=== PATIENT | female | born 1995 | race Caucasian/White ===

== ENCOUNTER 2019-07-06 07:15 | Emergency (ER) | payer SELFPAY ==
[~2019-07-06] VITALS: Ht 165.1 cm; Wt 71.2 kg
[2019-07-06 07:30] VITALS: BP 111/81
[2019-07-06] MEDS ORDERED: ONDANSETRON PF 4 MG/2 ML VIAL. IV ONE (07:45)
[2019-07-06] MEDS ORDERED: FAMOTIDINE 20 MG/2 ML VIAL IVP ONE (07:45)
[2019-07-06] MEDS ORDERED: IV NORMAL SALINE 1,000ML 1,000 ML IV SCH (08:00)
[2019-07-06] MEDS ORDERED: ONDANSETRON PF 4 MG/2 ML VIAL. ONE (08:02)
[2019-07-06] MEDS ORDERED: FAMOTIDINE 20 MG/2 ML VIAL ONE (08:03)
[2019-07-06 08:07] LABS: BASO % 1 % (0-3); EOS # 0.2 x10^3/uL (0.0-0.7); EOS % 3 % (0-3); HEMATOCRIT 40.5 % (36.0-47.0); HEMOGLOBIN 13.4 g/dL (12.0-15.5); LYMPH # 2.3 x10^3/uL (1.0-4.8); LYMPH % 28 % (24-48); MEAN CORPUSCULAR HEMOGLOBIN 29 pg (25-35); MEAN CORPUSCULAR HGB CONC 33 g/dL (31-37); MEAN CORPUSCULAR VOLUME 86 fL (79-100); MONO # 0.5 x10^3/uL (0.0-1.1); MONO % 6 % (0-9); NEUT % 62 % (31-73); PLATELET COUNT 282 x10^3/uL (140-400); RED CELL DISTRIBUTION WIDTH 13.5 % (11.5-14.5)
[2019-07-06 08:14] LABS: PREG TEST PT QUAL NEGATIVE (NEG)
[2019-07-06 08:16] LABS: BACTERIA,URINE MANY /HPF (0-FEW); BILIRUBIN,URINE NEG (NEG); CLARITY,URINE HAZY; COLOR,URINE YELLOW; GLUCOSE,URINE NEG (NEG); NITRITE,URINE NEG (NEG); SQUAMOUS EPITHELIAL CELL,UR MANY /LPF; UROBILINOGEN,URINE 0.2 mg/dL (0.2 mg/dL); WBC,URINE >40 /HPF (0-4)
[2019-07-06 08:17] LABS: ALBUMIN 3.9 g/dL (3.4-5.0); ALBUMIN/GLOBULIN RATIO 1.1 (1.0-1.7); CALCIUM 9.1 mg/dL (8.5-10.1); CREATININE 1.1 mg/dL (0.6-1.0); POTASSIUM 3.9 mmol/L (3.5-5.1); TOTAL BILIRUBIN 0.7 mg/dL (0.2-1.0); TOTAL PROTEIN 7.6 g/dL (6.4-8.2)
--- NOTE | 2019-07-06 08:31 | PHYS DOC ---
Past History Past Medical History: Asthma, Ovarian Cyst Past Surgical History: No Surgical History Alcohol Use: None Drug Use: None Adult General Chief Complaint Chief Complaint: ABDOMINAL PAIN HPI HPI Patient is a 24 year old female who presents with complaint of left-sided abdominal pain. Patient states her symptoms have been present over the past week. States that they have been waxing and waning during that time. Notes that she has been having nausea and occasional vomiting associated with symptoms. Denies any fever or loose stools. States that she has been moving her bowels. Notes that the pain is sharp and localized to her abdomen. Denies radiation of pain into the pelvis or into the flank. Has not taken any medications for symptoms. Denies any significant past medical history. No history of similar symptoms. Review of Systems Review of Systems Constitutional: Denies fever or chills [] Eyes: Denies change in visual acuity, redness, or eye pain [] HENT: Denies nasal congestion or sore throat [] Respiratory: Denies cough or shortness of breath [] Cardiovascular: Denies chest pain or edema[] GI: Abdominal pain, nausea, vomiting, denies bloody stools or diarrhea [] : Denies dysuria or hematuria [] Musculoskeletal: Denies back pain or joint pain [] Integument: Denies rash or skin lesions [] Neurologic: Denies headache, focal weakness or sensory changes [] All other systems were reviewed and found to be within normal limits, except as documented in this note. Current Medications Current Medications Current Medications Medications (Trade) Dose Ordered Sig/Lillie Start Time Stop Time Status Last Admin Dose Admin Famotidine (Pepcid Vial) 20 mg STK-MED ONCE 07/06/19 08:03 07/06/19 08:03 DC Fentanyl Citrate (Fentanyl 2ml Vial) 50 mcg PRN Q15MIN PRN 07/06/19 07:45 07/07/19 07:44 Ondansetron HCl (Zofran) 4 mg STK-MED ONCE 07/06/19 08:02 07/06/19 08:02 DC Sodium Chloride 1,000 ml @ 1,000 mls/hr Q1H 07/06/19 08:00 07/06/19 08:59 07/06/19 08:28 1,000 MLS/HR Allergies Allergies Allergies Coded Allergies Type Severity Reaction Last Updated Verified Penicillins Allergy Unknown 07/06/19 Yes amoxicillin Allergy Unknown 07/06/19 Yes naproxen Allergy Unknown 07/06/19 Yes sulfamethoxazole Allergy Unknown 07/06/19 Yes trimethoprim Allergy Unknown 07/06/19 Yes Physical Exam Physical Exam Constitutional: Alert, afebrile, appears in mild discomfort. [] HENT: Normocephalic, atraumatic, bilateral external ears normal, oropharynx moist, no oral exudates, nose normal. [] Eyes: PERRLA, EOMI, conjunctiva normal, no discharge. [] Neck: Normal range of motion, no tenderness, supple, no stridor. [] Cardiovascular:Heart rate regular rhythm, no murmur [] Lungs & Thorax: Bilateral breath sounds clear to auscultation [] Abdomen: Bowel sounds normal, soft, left upper and lower quadrant tenderness to palpation, no guarding or rebound tenderness, no masses, no pulsatile masses. [] Skin: Warm, dry, no erythema, no rash. [] Back: No tenderness, no CVA tenderness. [] Extremities: No tenderness, no cyanosis, no clubbing, ROM intact, no edema. [] Neurologic: Alert and oriented X 3, normal motor function, normal sensory function, no focal deficits noted. [] Current Patient Data Vital Signs Vital Signs Date Time Temp Pulse Resp B/P (MAP) Pulse Ox O2 Delivery O2 Flow Rate FiO2 07/06/19 07:30 98.6 92 21 99 Room Air Lab Results Laboratory Tests Test 07/06/19 07:40 07/06/19 07:48 07/06/19 08:05 Urine Collection Type Unknown Urine Color Yellow Urine Clarity Hazy Urine pH 5.5 Urine Specific [place] >=1.030 Urine Protein 30 mg/dl (NEG-TRACE) Urine Glucose (UA) Neg mg/dL (NEG) Urine Ketones (Stick) Neg mg/dL (NEG) Urine Blood Small (NEG) Urine Nitrite Neg (NEG) Urine Bilirubin Neg (NEG) Urine Urobilinogen Dipstick 0.2 mg/dL (0.2 mg/dL) Urine Leukocyte Esterase Trace (NEG) Urine RBC 3-5 /HPF (0-2) Urine WBC >40 /HPF (0-4) Urine Squamous Epithelial Cells Many /LPF Urine Bacteria Many /HPF (0-FEW) Urine Mucus Mod /LPF White Blood Count 8.0 x10^3/uL (4.0-11.0) Red Blood Count 4.70 x10^6/uL (3.50-5.40) Hemoglobin 13.4 g/dL (12.0-15.5) Hematocrit 40.5 % (36.0-47.0) Mean Corpuscular Volume 86 fL (79-100) Mean Corpuscular Hemoglobin 29 pg (25-35) Mean Corpuscular Hemoglobin Concent 33 g/dL (31-37) Red Cell Distribution Width 13.5 % (11.5-14.5) Platelet Count 282 x10^3/uL (140-400) Neutrophils (%) (Auto) 62 % (31-73) Lymphocytes (%) (Auto) 28 % (24-48) Monocytes (%) (Auto) 6 % (0-9) Eosinophils (%) (Auto) 3 % (0-3) Basophils (%) (Auto) 1 % (0-3) Neutrophils # (Auto) 5.0 x10^3uL (1.8-7.7) Lymphocytes # (Auto) 2.3 x10^3/uL (1.0-4.8) Monocytes # (Auto) 0.5 x10^3/uL (0.0-1.1) Eosinophils # (Auto) 0.2 x10^3/uL (0.0-0.7) Basophils # (Auto) 0.0 x10^3/uL (0.0-0.2) Sodium Level 141 mmol/L (136-145) Potassium Level 3.9 mmol/L (3.5-5.1) Chloride Level 105 mmol/L (98-107) Carbon Dioxide Level 27 mmol/L (21-32) Anion Gap 9 (6-14) Blood Urea Nitrogen 15 mg/dL (7-20) Creatinine 1.1 mg/dL (0.6-1.0) H Estimated GFR (Cockcroft-Gault) 61.0 BUN/Creatinine Ratio 14 (6-20) Glucose Level 95 mg/dL (70-99) Calcium Level 9.1 mg/dL (8.5-10.1) Total Bilirubin 0.7 mg/dL (0.2-1.0) Aspartate Amino Transferase (AST) 19 U/L (15-37) Alanine Aminotransferase (ALT) 29 U/L (14-59) Alkaline Phosphatase 42 U/L (46-116) L Total Protein 7.6 g/dL (6.4-8.2) Albumin 3.9 g/dL (3.4-5.0) Albumin/Globulin Ratio 1.1 (1.0-1.7) Lipase 123 U/L (73-393) Serum Test, Qualitative Negative (NEG) POC Urine HCG, Qualitative hcg negative (Negative) EKG EKG Not performed[] Radiology/Procedures Radiology/Procedures [address] [address] IMAGING REPORT Signed PATIENT: ИРИНА CROOKS MACCOUNT: [id number] : 1995 LOCATION: ER AGE: 24 SEX: F EXAM STATUS: REG ER ORD. PHYSICIAN: JESSICA NUNEZ MD REASON: left sided abdominal pain PROCEDURE: ACUTE ABDOMEN SERIES 2 view abdominal series and PA view chest x-ray Clinical indications: Left-sided abdominal pain. FINDINGS: Mild fecal retention is seen throughout the colon and rectosigmoid region. No dilatation of the colon or small bowel is seen. No air-fluid levels are seen. No free intraperitoneal air is seen. There is a 14 mm oval calcification of the right side of the pelvis. Calcified appendicolith is possible. Mild scoliotic curvature is seen. Chest x-ray demonstrates no acute infiltrate or pleural effusion or pulmonary edema or pneumothorax or lung mass. Heart size and pulmonary vasculature and mediastinum and both candida are unremarkable. IMPRESSION: Mild fecal retention. 14 mm oval calcification of the right side of the anatomic pelvis. Calcified appendicolith is possible. If appendicitis is a clinical concern, then a CT study of the abdomen and pelvis with IV and GI contrast is recommended for further evaluation. Electronically signed by: Isai Dozier MD (07/06/2019 8:39 AM) [facility] DICTATED AND SIGNED BY: ISAI DOZIER MD DATE: 07/06/19 0839 CC: JESSICA NUNEZ MD; PCP,NO ~ [] Course & Med Decision Making Course & Med Decision Making Pertinent Labs and Imaging studies reviewed. (See chart for details) Patient was started on IV fluids, fentanyl, and Zofran in the emergency department. Patient's CBC and metabolic panel are largely unremarkable at this time. Urinalysis shows signs of potential urinary tract infection. Patient will be started on Macrobid for outpatient treatment. The patient's x-ray series shows signs of fecal retention consistent with constipation. Patient does have a 14 mm calcification that was noted to be a possible appendicolith. Patient's examination however shows no right lower quadrant tenderness to palpation and no guarding in any 4 quadrants. I have low suspicion of appendicitis in this patient. The patient however was given close follow-up recommendations with primary doctor in the next 2-3 days for reevaluation and was given return precautions to the emergency department for any worsening sym ptoms. The patient will be discharged with additional prescriptions for Zofran and Bentyl. Advised to start on MiraLAX daily to help improve passage of stool. Patient voiced understanding and in agreement with treatment plan.[] Dragon Disclaimer Dragon Disclaimer This electronic medical record was generated, in whole or in part, using a voice recognition dictation system. Departure Departure: Impression: Primary Impression: Left sided abdominal pain of unknown cause Additional Impressions: Constipation Urinary tract infection Disposition: 01 HOME, SELF-CARE Condition: IMPROVED Referrals: PCP,YASISNE (PCP) Patient Instructions: Abdominal Pain (Nonspecific), Constipation, Adult, Urinary Tract Infection Additional Instructions: Follow-up with her primary doctor in the next 2-3 days for reevaluation. Return to the emergency department for any worsening symptoms. Scripts Ondansetron (ONDANSETRON ODT) 4 Mg Tab.rapdis 1 TAB PO Q6-8HRS PRN for NAUSEA/VOMITING, #16 TAB Prov: JESSICA NUNEZ MD 07/06/19 Dicyclomine Hcl (DICYCLOMINE HCL) 20 Mg Tablet 1 TAB PO QID, #60 TAB Prov: JESSICA NUNEZ MD 07/06/19 Polyethylene Glycol 3350 (MIRALAX) 17 Gm Powd.pack 1 PACKET PO DAILY, #30 PACKET 0 Refills Prov: JESSICA NUNEZ MD 07/06/19 Nitrofurantoin Monohyd/M-Cryst (MACROBID 100 MG CAPSULE) 100 Mg Capsule 1 CAP PO BID, #14 CAP Prov: JESSICA NUNEZ MD 07/06/19 Problem Qualifiers Additional Impressions: Constipation Constipation type: unspecified constipation type Qualified Codes: K59.00 - Constipation, unspecified Urinary tract infection Urinary tract infection type: site unspecified Hematuria presence: without hematuria Qualified Codes: N39.0 - Urinary tract infection, site not specified JESSICA NUNEZ MD Jul 06, 2019 08:31
--- NOTE | 2019-07-06 08:42 | RAD ---
2 view abdominal series and PA view chest x-ray Clinical indications: Left-sided abdominal pain. FINDINGS: Mild fecal retention is seen throughout the colon and rectosigmoid region. No dilatation of the colon or small bowel is seen. No air-fluid levels are seen. No free intraperitoneal air is seen. There is a 14 mm oval calcification of the right side of the pelvis. Calcified appendicolith is possible. Mild scoliotic curvature is seen. Chest x-ray demonstrates no acute infiltrate or pleural effusion or pulmonary edema or pneumothorax or lung mass. Heart size and pulmonary vasculature and mediastinum and both candida are unremarkable. IMPRESSION: Mild fecal retention. 14 mm oval calcification of the right side of the anatomic pelvis. Calcified appendicolith is possible. If appendicitis is a clinical concern, then a CT study of the abdomen and pelvis with IV and GI contrast is recommended for further evaluation. Electronically signed by: Wiliam Dozier MD (07/06/2019 8:39 AM) [facility]
[2019-07-06] MEDS ORDERED: ONDA4TAB12 PO (08:55)
[2019-07-06] MEDS ORDERED: NITR100C62 PO (08:55)
[2019-07-06] MEDS ORDERED: POLY17PO5 PO (08:55)
[2019-07-06] MEDS ORDERED: DICY20TA3 PO (08:55)
== END 2019-07-06 09:05 | disposition home or self-care (01) ==
LOC: ER 07:15
DX: K59.00 Constipation, unspecified (principal); N39.0 Urinary tract infection, site not specified; R11.2 Nausea with vomiting, unspecified; J45.909 Unspecified asthma, uncomplicated; Z88.0 Allergy status to penicillin; Z88.1 Allergy status to other antibiotic agents; Z88.2 Allergy status to sulfonamides; Z88.8 Allergy status to other drugs, medicaments and biological substances
CPT/HCPCS: 36415; 74022; 80053; 81001; 81025; 83690; 84703; 85025; 87086; 96361; 96374; 96375; 99285; J2405; J3010; J3490; J7030

== ENCOUNTER 2019-09-16 22:02 | Emergency (ER) | payer MEDICAID ==
[~2019-09-16] VITALS: Ht 165.1 cm; Wt 71.2 kg
[~2019-09-16 22:02] MED LIST: DICY20TA3 PO; NITR100C62 PO; ONDA4TAB12 PO; POLY17PO5 PO
[2019-09-17] VITALS: BP 101/60
[2019-09-17] MEDS ORDERED: ACETAMINOPHEN 325 MG TABLET PO ONE
[2019-09-17] MEDS ORDERED: ONDANSETRON ODT 4 MG TAB.RAPDIS PO ONE
[2019-09-17 00:01] LABS: BACTERIA,URINE MOD /HPF (0-FEW); BILIRUBIN,URINE NEG (NEG); CLARITY,URINE HAZY; COLOR,URINE YELLOW; GLUCOSE,URINE NEG (NEG); NITRITE,URINE NEG (NEG); RBC,URINE >40 /HPF (0-2); UROBILINOGEN,URINE 0.2 mg/dL (0.2 mg/dL)
[2019-09-17 00:02] LABS: SQUAMOUS EPITHELIAL CELL,UR FEW /LPF
[2019-09-17] MEDS ORDERED: PROC10TA57 PO (00:08)
--- NOTE | 2019-10-05 16:07 | ED.ADGEN ---
Past History Past Medical History: Asthma, Ovarian Cyst Past Surgical History: No Surgical History Alcohol Use: None Drug Use: None Adult General Chief Complaint Chief Complaint multiple medical complaints HPI HPI Patient is a 24-year-old female presents with multiple medical complaints. Patient reports intermittent daily headaches for the past month and a half. Reports loose stools, dysuria, and back pain. No fever chills, sweats. No abdominal pain, chest pain, shortness of breath. No other acute symptoms or complaints. Patient also reports missed menstrual periods for the past 2 to months. Patient states her primary reason for coming to the ED this evening was related to headache.[] Review of Systems Review of Systems Review symptoms as per history of present illness. All other review symptoms are negative. All other systems were reviewed and found to be within normal limits, except as documented in this note. Current Medications Current Medications Current Medications Medications (Trade) Dose Ordered Sig/Lillie Start Time Stop Time Status Last Admin Dose Admin Acetaminophen (Tylenol) 325 mg 1X ONCE 09/17/19 00:00 09/17/19 00:01 DC 09/17/19 00:00 325 MG Ondansetron HCl (Zofran Odt) 4 mg 1X ONCE 09/17/19 00:00 09/17/19 00:01 DC 09/17/19 00:00 4 MG Allergies Allergies Allergies Coded Allergies Type Severity Reaction Last Updated Verified Penicillins Allergy Unknown 07/06/19 Yes amoxicillin Allergy Unknown 07/06/19 Yes naproxen Allergy Unknown 07/06/19 Yes sulfamethoxazole Allergy Unknown 07/06/19 Yes trimethoprim Allergy Unknown 07/06/19 Yes Physical Exam Physical Exam Constitutional: Well developed, well nourished, no acute distress, non-toxic appearance. [] HENT: Normocephalic, atraumatic, bilateral external ears normal, oropharynx moist, no oral exudates, nose normal. [] Eyes: PERRLA, EOMI, conjunctiva normal, no discharge. [] Neck: Normal range of motion, no tenderness, supple, no stridor. [] Cardiovascular:Heart rate regular rhythm, no murmur [] Lungs & Thorax: Bilateral breath sounds clear to auscultation [] Abdomen: Bowel sounds normal, soft, no tenderness. [] Skin: Warm, dry, no erythema, no rash. [] Back: No tenderness, no CVA tenderness. [] Extremities: No tenderness, no cyanosis, no clubbing, ROM intact, no edema. [] Neurologic: Alert and oriented X 3, normal motor function, normal sensory function, no focal deficits noted. [] Psychologic: Affect normal, judgement normal, mood normal. [] Current Patient Data Vital Signs Vital Signs Date Time Temp Pulse Resp B/P (MAP) Pulse Ox O2 Delivery O2 Flow Rate FiO2 09/17/19 00:00 91 18 101/60 (74) 98 Room Air 09/16/19 22:15 98.1 Lab Results Laboratory Tests Test 09/16/19 22:25 09/16/19 22:44 Urine Collection Type Unknown Urine Color Yellow Urine Clarity Hazy Urine pH 5.5 Urine Specific [place] 1.025 Urine Protein Neg (NEG-TRACE) Urine Glucose (UA) Neg mg/dL (NEG) Urine Ketones (Stick) Neg mg/dL (NEG) Urine Blood Large (NEG) Urine Nitrite Neg (NEG) Urine Bilirubin Neg (NEG) Urine Urobilinogen Dipstick 0.2 mg/dL (0.2 mg/dL) Urine Leukocyte Esterase Small (NEG) Urine RBC >40 /HPF (0-2) Urine WBC 11-20 /HPF (0-4) Urine Squamous Epithelial Cells Few /LPF Urine Bacteria Mod /HPF (0-FEW) POC Urine HCG, Qualitative hcg negative (Negative) Microbiology 09/17/19 Urine Culture - Final, Complete 09/17/19 Urine Culture Result 1 (STEPHANIE) - Final, Complete 09/17/19 Antimicrobic Susceptibility - Final, Complete EKG EKG [] Radiology/Procedures Radiology/Procedures [] Course & Med Decision Making Course & Med Decision Making Pertinent Labs and Imaging studies reviewed. (See chart for details) [Symptoms/headache resolved with treatment. Recommendations are supportive care with PCP evaluation for further workup. Return cautions reviewed.] Final Impression Final Impression [1. migraine headache] Dragon Disclaimer Dragon Disclaimer This electronic medical record was generated, in whole or in part, using a voice recognition dictation system. KENDY QURESHI DO Oct 05, 2019 16:07
== END 2019-09-17 00:40 | disposition home or self-care (01) ==
LOC: ER 22:02
DX: G43.909 Migraine, unspecified, not intractable, without status migrainosus (principal); R19.7 Diarrhea, unspecified; J45.909 Unspecified asthma, uncomplicated; Z88.0 Allergy status to penicillin; Z88.1 Allergy status to other antibiotic agents; Z88.2 Allergy status to sulfonamides; Z88.8 Allergy status to other drugs, medicaments and biological substances
CPT/HCPCS: 81001; 81025; 87086; 87186; 99284; Q0162

== ENCOUNTER 2019-10-17 18:16 | Emergency (ER) | payer MEDICAID, OTHER ==
[~2019-10-17 18:16] MED LIST changes: +PROC10TA57 PO
[2019-10-17] MEDS ORDERED: HYDROcodone/APAP 5/325MG 1 TAB TABLET PO ONE (18:45)
[2019-10-17] MEDS ORDERED: ONDANSETRON ODT 4 MG TAB.RAPDIS PO ONE (18:45)
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
[2019-10-17 21:11] VITALS: BP 124/64
== END 2019-10-17 20:55 | disposition home or self-care (01) ==
LOC: ER 18:16
DX: R07.81 Pleurodynia (principal); M25.572 Pain in left ankle and joints of left foot; R51 Headache; G89.11 Acute pain due to trauma; J45.909 Unspecified asthma, uncomplicated; Z88.0 Allergy status to penicillin; Z88.1 Allergy status to other antibiotic agents; Z88.2 Allergy status to sulfonamides; Z88.8 Allergy status to other drugs, medicaments and biological substances; V49.49XA Driver injured in collision with other motor vehicles in traffic accident, initial encounter; Y93.I9 Activity, other involving external motion; Y92.488 Other paved roadways as the place of occurrence of the external cause; Y99.8 Other external cause status
CPT/HCPCS: 70450; 71101; 73610; 81025; 99284; Q0162